=== PATIENT | male | born 1995 | race African-American/Black ===

== ENCOUNTER 2017-05-11 19:02 | Emergency (ER) | payer MEDICAID ==
[~2017-05-11] VITALS: Ht 180.3 cm; Wt 56.2 kg
[2017-05-12] MEDS ORDERED: CEFTRIAXONE SODIUM 250 MG/VIAL IM ONE (01:15)
[2017-05-12] MEDS ORDERED: AZITHROMYCIN 500 MG TABLET PO ONE (01:15)
[2017-05-12 02:00] VITALS: BP 124/68
== END 2017-05-12 02:00 | disposition home or self-care (01) ==
LOC: ER 19:02
DX: K62.89 Other specified diseases of anus and rectum (principal); R07.89 Other chest pain; F12.90 Cannabis use, unspecified, uncomplicated
CPT/HCPCS: 96372; 99283; J0696